=== PATIENT | male | born 1950 | race African-American/Black ===

== ENCOUNTER 2018-10-31 16:34 | Inpatient (IN) | payer MEDICARE, MEDICAID ==
[~2018-10-31] VITALS: Ht 170.2 cm; Wt 73.5 kg
[2018-10-31] MEDS ORDERED: SODIUM CHLORIDE 0.9% 1,000 ML IV ONE (23:43)
[2018-10-31] MEDS ORDERED: ONDANSETRON HCL 4MG/2ML INJ IV STA (23:43)
[2018-10-31] MEDS ORDERED: MORPHINE SULFATE 10 MG/ML CPJ IV ONE (23:45)
[2018-11-01 00:39] LABS: HEMATOCRIT. 43.6 % (42.0-52.0); HEMOGLOBIN. 14.3 g/dL (14.0-18.0); MEAN CORPUSCULAR HEMOGLOBIN 31.4 pg (28.0-32.0); MEAN CORPUSCULAR VOLUME 95.8 fL (80.0-94.0); PLATELET 172 x1000/uL (130-400); RED BLOOD CELL COUNT 4.55 mill/uL (4.7-6.1)
[2018-11-01 00:43] LABS: CHLORIDE 112 mEq/L (98-107)
[2018-11-01 00:45] LABS: INR 1.2; PROTHROMBIN TIME 11.9 sec (9.1-11.1)
[2018-11-01 03:04] LABS: CLARITY URINE TURBID (CLEAR); COLOR URINE DARK YELLOW (YELLOW); KETONES URINE NEGATIVE (NEGATIVE); LEUKOCYTE ESTERASE URINE 3+ (NEGATIVE); NITRITE URINE NEGATIVE (NEGATIVE); OCCULT BLOOD URINE 3+ (NEGATIVE); PH URINE 5.5 (4.5-8.0); PROTEIN URINE 2+ (NEGATIVE)
[2018-11-01 03:10] LABS: ATYPICAL LYMPHOCYTES 2
[2018-11-01 03:11] LABS: PLATELET ESTIMATE NORMAL
[2018-11-01 03:15] LABS: *AMPHETAMINES SCREEN URINE NEGATIVE (NEGATIVE); *BARBITURATES SCREEN URINE NEGATIVE (NEGATIVE); *BENZODIAZEPINES SCREEN URINE NEGATIVE (NEGATIVE); *COCAINE SCREEN URINE NEGATIVE (NEGATIVE); CANNABINOID URINE SCREEN NEGATIVE (NEGATIVE); METHADONE URINE SCREEN NEGATIVE (NEGATIVE); OPIATES URINE SCREEN PRESUMTIVE POSITIVE (NEGATIVE); PHENCYCLIDINE URINE SCREEN NEGATIVE (NEGATIVE)
[2018-11-01] MEDS ORDERED: IPRATROPIUM/ALBUTEROL 0.5-3(2.5)MG/3ML NEB INH PRN (06:00)
[2018-11-01] MEDS ORDERED: GUAIFENESIN 200MG/10ML SUGAR FREE UDC PO PRN (06:00)
[2018-11-01] MEDS ORDERED: MAGNESIUM/ALUMINUM HYDROXIDE/SIMETHICONE 30ML UDC PO PRN (06:00)
[2018-11-01] MEDS ORDERED: DOCUSATE SODIUM 100MG CAPSULE PO PRN (06:00)
[2018-11-01] MEDS ORDERED: DIPHENHYDRAMINE 50MG/ML VIAL IV PRN (06:00)
[2018-11-01] MEDS ORDERED: HYDRALAZINE 20MG/ML VIAL IV PRN (06:00)
[2018-11-01] MEDS ORDERED: MVI, ADULT NO.1 10 ML, FOLIC ACID 1 MG in SODIUM CHLORIDE 0.9% 1,000 ML IV SCH ×3 (06:30)
[2018-11-01 08:00] VITALS: BP 171/99
[2018-11-01] MEDS: HYDROCODONE/ACETAMINOPHEN 10/325MG TABLET PO PRN ×3 (08:07→18:26)
[2018-11-01 11:00] VITALS: BP 168/101
[2018-11-01] MEDS ORDERED: HYDRALAZINE 10 MG in SODIUM CHLORIDE 0.9% 49.5 ML IV PRN (11:15)
[2018-11-01 11:18] VITALS: BP 168/101
[2018-11-01] MEDS: ENOXAPARIN 40MG/0.4ML SYR SUBCUT SCH (11:56)
[2018-11-01] MEDS: ASPIRIN 81MG EC TABLET PO SCH (11:56)
[2018-11-01 12:00] VITALS: BP 138/81
[2018-11-01] MEDS: SODIUM CHLORIDE 0.9% INJ 3ML FLUSH IVF SCH (15:28)
[2018-11-01 16:00] VITALS: BP_SYST 132; BP_SYST 139; BP_DIAS 73; BP_DIAS 75
[2018-11-01 16:17] LABS: CREATINE KINASE MB FRACTION 2.9 ng/mL (0.5-3.6)
[2018-11-01 20:00] VITALS: BP 151/95
[2018-11-01] MEDS: ONDANSETRON HCL 4MG/2ML INJ IV PRN (20:25)
[2018-11-01] MEDS: HYDROMORPHONE HCL/PF 2MG/ML CPJ IV PRN (20:25)
[2018-11-02] VITALS (7 sets, daily range): BP systolic 135–160; BP diastolic 81–101
[2018-11-02] MEDS: CLONIDINE 0.1MG TABLET PO PRN ×2 (01:21→17:58)
[2018-11-02] MEDS: SODIUM CHLORIDE 0.9% INJ 3ML FLUSH IVF SCH ×2 (01:21→14:34)
[2018-11-02] MEDS: HYDROMORPHONE HCL/PF 2MG/ML CPJ IV PRN ×3 (06:23→17:58)
[2018-11-02] MEDS: ONDANSETRON HCL 4MG/2ML INJ IV PRN (06:23)
[2018-11-02 07:22] LABS: CHLORIDE 113 mEq/L (98-107)
[2018-11-02 07:23] LABS: BASOPHILS % 3.2 % (0.0-2.0); EOSINOPHILS % 4.8 % (0.0-5.0); HEMATOCRIT. 40.7 % (42.0-52.0); HEMOGLOBIN. 13.4 g/dL (14.0-18.0); MEAN CORPUSCULAR HEMOGLOBIN 31.8 pg (28.0-32.0); MEAN CORPUSCULAR VOLUME 96.6 fL (80.0-94.0); MEAN PLATELET VOLUME 10.7 fl (7.4-10.4); MONOCYTES % 13.6 % (2.0-8.0); NEUTROPHILS % 35.4 % (40.0-76.0); PLATELET 175 x1000/uL (130-400); RED BLOOD CELL COUNT 4.21 mill/uL (4.7-6.1); RED CELL DISTRIBUTION WIDTH 15.1 % (11.6-14.6)
[2018-11-02 07:38] LABS: LDL CHOLESTEROL 64 mg/dL (5-100)
[2018-11-02 07:41] LABS: HDL CHOLESTEROL 31 mg/dL (40-59)
[2018-11-02] MEDS: ENOXAPARIN 40MG/0.4ML SYR SUBCUT SCH (09:14)
[2018-11-02] MEDS: ASPIRIN 81MG EC TABLET PO SCH (09:14)
[2018-11-03] MEDS: HYDROMORPHONE HCL/PF 2MG/ML CPJ IV PRN ×3 (00:44→22:39)
[2018-11-03] MEDS: ONDANSETRON HCL 4MG/2ML INJ IV PRN (00:44)
[2018-11-03 04:00] VITALS: BP 151/80
[2018-11-03] MEDS: SODIUM CHLORIDE 0.9% INJ 3ML FLUSH IVF SCH ×3 (06:45→22:39)
[2018-11-03 08:00] VITALS: BP 142/92
[2018-11-03] MEDS: ENOXAPARIN 40MG/0.4ML SYR SUBCUT SCH (08:34)
[2018-11-03] MEDS: ASPIRIN 81MG EC TABLET PO SCH (08:34)
[2018-11-03] MEDS: HYDROCODONE/ACETAMINOPHEN 10/325MG TABLET PO PRN ×3 (08:34→16:30)
[2018-11-03 11:38] VITALS: BP 159/97
[2018-11-03 16:00] VITALS: BP 168/103
[2018-11-03 20:00] VITALS: BP 154/86
[2018-11-03] MEDS: AMLODIPINE 5MG TABLET PO SCH (22:47)
[2018-11-04] VITALS: BP 156/80
[2018-11-04 04:00] VITALS: BP 158/89
[2018-11-04] MEDS: SODIUM CHLORIDE 0.9% INJ 3ML FLUSH IVF SCH ×3 (06:00→22:00)
[2018-11-04] MEDS ORDERED: TRANEXAMIC ACID 1,000 MG in SODIUM CHLORIDE 0.9% 100 ML IV NR ×2 (07:15→07:30)
[2018-11-04] MEDS ORDERED: TRANEXAMIC ACID 1,000 MG/10 ML IV SCH (07:30)
[2018-11-04] MEDS ORDERED: MORPHINE SULFATE/PF 1MG/ML 10ML AMP ONE (07:30)
[2018-11-04] MEDS ORDERED: EPINEPHRINE 1:1000 1 MG/ML AMP ONE (07:31)
[2018-11-04] MEDS ORDERED: BACITRACIN 15GM TUBE TOP ONE (07:31)
[2018-11-04] MEDS ORDERED: KETOROLAC 30MG/ML VIAL ONE (07:31)
[2018-11-04] MEDS ORDERED: ROPIVACAINE HCL 10MG/ML 20 ML VIAL EPI ONE (07:32)
[2018-11-04] MEDS ORDERED: VANCOMYCIN HCL 500 MG/VIAL ONE (07:32)
[2018-11-04] MEDS ORDERED: NORMAL SALINE 0.9% 10 ML SYR ONE (07:33)
[2018-11-04] MEDS ORDERED: BACITRACIN 50,000 UNITS/VIAL ONE (07:33)
[2018-11-04] MEDS ORDERED: PROPOFOL 200MG/20ML VIAL IV ONE (08:07)
[2018-11-04] MEDS ORDERED: SUCCINYLCHOLINE CHLORIDE 200MG/10ML IV ONE (08:07)
[2018-11-04] MEDS ORDERED: METOPROLOL TARTRATE 5MG/5ML VIAL IV ONE (08:07)
[2018-11-04] MEDS ORDERED: FENTANYL CITRATE/PF 50MCG/ML 2ML VIAL ONE ×2 (08:08→08:57)
[2018-11-04] MEDS ORDERED: ROCURONIUM BROMIDE 10MG/ML VIAL 5ML IV ONE ×2 (08:09→09:06)
[2018-11-04] MEDS ORDERED: MIDAZOLAM HCL 2 MG/2 ML VIAL ONE (08:13)
[2018-11-04] MEDS ORDERED: ESMOLOL HCL 10MG/ML 10ML VIAL IV ONE (08:23)
[2018-11-04] MEDS ORDERED: CEFAZOLIN SODIUM 1000MG/VIAL ONE (08:28)
[2018-11-04] MEDS ORDERED: SODIUM CHLORIDE 0.9% 10ML VIAL ONE (08:28)
[2018-11-04] MEDS: AMLODIPINE 5MG TABLET PO SCH ×2 (09:00→20:59)
[2018-11-04] MEDS ORDERED: CEFAZOLIN 1000MG PREMIX 50 ML IV SCH ×2 (09:45→16:00)
[2018-11-04] MEDS ORDERED: ACETAMINOPHEN 325MG TABLET PO PRN (09:45)
[2018-11-04] MEDS ORDERED: KETOROLAC 30MG/ML VIAL IV PRN (09:45)
[2018-11-04] MEDS ORDERED: ONDANSETRON HCL 4MG/2ML INJ ONE (09:56)
[2018-11-04] MEDS ORDERED: METOCLOPRAMIDE HCL 10MG/2ML VIAL ONE (09:56)
[2018-11-04] MEDS ORDERED: GLYCOPYRROLATE 0.2 MG/ML 2ML VIAL ONE (09:56)
[2018-11-04] MEDS ORDERED: NEOSTIGMINE METHYLSULFATE 1MG/ML 10 ML VIAL ONE (09:56)
[2018-11-04] MEDS ORDERED: MORPHINE SULFATE 4 MG/ML CPJ (NOT FOR IM USE) IV PRN (13:45)
[2018-11-04] MEDS ORDERED: ONDANSETRON HCL 4MG/2ML INJ IV PRN (13:45)
[2018-11-04] MEDS ORDERED: SODIUM CHLORIDE 0.9% 1,000 ML IV ONE (14:00)
[2018-11-04] MEDS: HYDROMORPHONE HCL/PF 2MG/ML CPJ IV PRN ×3 (15:36→23:20)
[2018-11-04] MEDS: LORAZEPAM 2MG/ML CPJ IV PRN (16:29)
[2018-11-04] MEDS ORDERED: LORAZEPAM 2MG/ML CPJ IV PRN (17:30)
[2018-11-04] MEDS ORDERED: SODIUM CHLORIDE 0.9% 1,000 ML IV SCH (17:30)
[2018-11-04 18:30] VITALS: BP 182/122
[2018-11-04] MEDS: CLONIDINE 0.1MG TABLET PO PRN (18:53)
[2018-11-04 19:40] VITALS: BP 140/104
[2018-11-04 20:00] VITALS: BP 186/102
[2018-11-04] MEDS ORDERED: METOPROLOL TARTRATE 5MG/5ML VIAL IV NR (20:45)
[2018-11-04] MEDS: [UNRECOGNIZED DRUG - REMARK] IV SCH ×3 (20:59)
[2018-11-04] MEDS: CEFAZOLIN 1000MG PREMIX 50 ML IV SCH (23:01)
[2018-11-05] VITALS (9 sets, daily range): BP systolic 124–189; BP diastolic 54–110
[2018-11-05] MEDS: ACETAMINOPHEN 325MG TABLET PO PRN ×2 (00:17→20:18)
[2018-11-05] MEDS: HYDRALAZINE 20MG/ML VIAL IV PRN ×2 (00:32→19:39)
[2018-11-05] MEDS: HYDROCODONE/ACETAMINOPHEN 10/325MG TABLET PO PRN ×3 (01:10→16:20)
[2018-11-05] MEDS: HYDROMORPHONE HCL/PF 2MG/ML CPJ IV PRN ×4 (03:50→21:26)
[2018-11-05] MEDS: SODIUM CHLORIDE 0.9% INJ 3ML FLUSH IVF SCH ×3 (05:56→19:40)
[2018-11-05 06:20] LABS: BASOPHILS % 0.7 % (0.0-2.0); EOSINOPHILS % 0.6 % (0.0-5.0); HEMATOCRIT. 39.6 % (42.0-52.0); LYMPHOCYTES % 25.8 % (20.0-50.0); MEAN CORPUSCULAR HEMOGLOBIN 31.9 pg (28.0-32.0); MEAN CORPUSCULAR VOLUME 96.9 fL (80.0-94.0); MEAN PLATELET VOLUME 10.8 fl (7.4-10.4); MONOCYTES % 12.3 % (2.0-8.0); NEUTROPHILS % 60.6 % (40.0-76.0); PLATELET 172 x1000/uL (130-400); RED BLOOD CELL COUNT 4.09 mill/uL (4.7-6.1); RED CELL DISTRIBUTION WIDTH 14.7 % (11.6-14.6)
[2018-11-05 06:24] LABS: CHLORIDE 108 mEq/L (98-107)
[2018-11-05] MEDS: AMLODIPINE 5MG TABLET PO SCH ×2 (09:37→19:40)
[2018-11-05] MEDS: CEFAZOLIN 1000MG PREMIX 50 ML IV SCH ×2 (09:38→16:20)
[2018-11-05] MEDS: ENOXAPARIN 40MG/0.4ML SYR SUBCUT SCH (15:00)
[2018-11-05] MEDS: LORAZEPAM 2MG/ML CPJ IV PRN ×2 (17:30→19:40)
[2018-11-05] MEDS: [UNRECOGNIZED DRUG - REMARK] IV SCH ×3 (20:31)
[2018-11-05] MEDS ORDERED: DIGOXIN 500MCG/2ML AMP IV SCH (20:45)
[2018-11-05] MEDS: CLONIDINE 0.1MG TABLET PO PRN (21:08)
[2018-11-05] MEDS ORDERED: DIGOXIN 500MCG/2ML AMP IV NR (21:15)
[2018-11-06] MEDS: CEFAZOLIN 1000MG PREMIX 50 ML IV SCH ×3 (00:04→16:16)
[2018-11-06] MEDS: LORAZEPAM 2MG/ML CPJ IV PRN ×2 (01:30→16:17)
[2018-11-06] MEDS: HYDROMORPHONE HCL/PF 2MG/ML CPJ IV PRN (02:55)
[2018-11-06] MEDS: SODIUM CHLORIDE 0.9% INJ 3ML FLUSH IVF SCH ×3 (03:54→21:33)
[2018-11-06 04:00] VITALS: BP 122/95
[2018-11-06] MEDS: CLONIDINE 0.1MG TABLET PO PRN (05:13)
[2018-11-06 07:32] LABS: CHLORIDE 109 mEq/L (98-107)
[2018-11-06 07:40] LABS: BASOPHILS % 0.7 % (0.0-2.0); EOSINOPHILS % 1.1 % (0.0-5.0); HEMOGLOBIN. 11.8 g/dL (14.0-18.0); LYMPHOCYTES % 20.8 % (20.0-50.0); MEAN CORPUSCULAR HEMOGLOBIN 31.6 pg (28.0-32.0); MEAN PLATELET VOLUME 10.7 fl (7.4-10.4); MONOCYTES % 14.7 % (2.0-8.0); NEUTROPHILS % 62.7 % (40.0-76.0); PLATELET 163 x1000/uL (130-400); RED BLOOD CELL COUNT 3.75 mill/uL (4.7-6.1); RED CELL DISTRIBUTION WIDTH 14.4 % (11.6-14.6)
[2018-11-06 08:00] VITALS: BP 150/60
[2018-11-06] MEDS: METOPROLOL TARTRATE 25MG TABLET PO SCH ×2 (09:01→20:04)
[2018-11-06 12:00] VITALS: BP 141/74
[2018-11-06] MEDS: DILTIAZEM HCL 30MG TABLET PO SCH ×2 (12:05→16:16)
[2018-11-06] MEDS: ENOXAPARIN 40MG/0.4ML SYR SUBCUT SCH (14:31)
[2018-11-06 16:00] VITALS: BP 139/68
[2018-11-06] MEDS ORDERED: HYDROMORPHONE HCL/PF 2MG/ML CPJ IV PRN (18:00)
[2018-11-06] MEDS ORDERED: MAGNESIUM 1 G PREMIX 100 ML IV SCH (19:00)
[2018-11-06 20:00] VITALS: BP 143/99
[2018-11-06] MEDS: [UNRECOGNIZED DRUG - REMARK] IV SCH ×3 (20:50)
[2018-11-07 00:05] VITALS: BP 134/71
[2018-11-07] MEDS: CEFAZOLIN 1000MG PREMIX 50 ML IV SCH ×2 (00:40→08:04)
[2018-11-07] MEDS: DILTIAZEM HCL 30MG TABLET PO SCH ×3 (00:40→12:48)
[2018-11-07 04:00] VITALS: BP 183/103
[2018-11-07] MEDS: LORAZEPAM 2MG/ML CPJ IV PRN (05:17)
[2018-11-07] MEDS: SODIUM CHLORIDE 0.9% INJ 3ML FLUSH IVF SCH ×2 (05:18→14:56)
[2018-11-07] MEDS: CLONIDINE 0.1MG TABLET PO PRN (05:18)
[2018-11-07 07:47] LABS: BASOPHILS % 0.8 % (0.0-2.0); EOSINOPHILS % 3.8 % (0.0-5.0); HEMATOCRIT. 37.3 % (42.0-52.0); HEMOGLOBIN. 12.2 g/dL (14.0-18.0); LYMPHOCYTES % 13.2 % (20.0-50.0); MEAN CORPUSCULAR HEMOGLOBIN 31.8 pg (28.0-32.0); MONOCYTES % 12.4 % (2.0-8.0); NEUTROPHILS % 69.8 % (40.0-76.0); PLATELET 177 x1000/uL (130-400); RED BLOOD CELL COUNT 3.84 mill/uL (4.7-6.1); RED CELL DISTRIBUTION WIDTH 14.5 % (11.6-14.6)
[2018-11-07 08:00] VITALS: BP 168/99
[2018-11-07] MEDS: METOPROLOL TARTRATE 25MG TABLET PO SCH (08:04)
[2018-11-07 12:00] VITALS: BP 153/77
[2018-11-07 15:57] VITALS: BP 153/77
[2018-11-07 16:00] VITALS: BP 148/80
[2018-11-07] MEDS ORDERED: DILTIAZEM HCL 60MG TABLET PO SCH (18:00)
== END 2018-11-07 17:38 | DRG 470 ==
LOC: ER 16:34 → 6EST 11-01 02:42 → EDBEDREQ 11-01 02:49 → EDBEDREQSVC 11-01 02:49 → EDBEDREQTM 11-01 02:49 → ENRESERV 11-01 07:06 → 7WST 11-04 16:57
PROVIDERS: ADMIT Internal Medicine; ATTEND Internal Medicine
PROC: 0SRR0JA Replacement of Right Hip Joint, Femoral Surface with Synthetic Substitute, Uncemented, Open Approach (ICD-10-PCS; principal; 2018-11-04)
DX: S72.001A Fracture of unspecified part of neck of right femur, initial encounter for closed fracture (principal); N39.0 Urinary tract infection, site not specified; I47.1 Supraventricular tachycardia; I11.9 Hypertensive heart disease without heart failure; J44.9 Chronic obstructive pulmonary disease, unspecified; M19.90 Unspecified osteoarthritis, unspecified site; F10.20 Alcohol dependence, uncomplicated; F12.90 Cannabis use, unspecified, uncomplicated; F17.210 Nicotine dependence, cigarettes, uncomplicated; R74.0 Nonspecific elevation of levels of transaminase and lactic acid dehydrogenase [LDH]; W18.39XA Other fall on same level, initial encounter; Z82.49 Family history of ischemic heart disease and other diseases of the circulatory system; Y93.89 Activity, other specified; Y92.89 Other specified places as the place of occurrence of the external cause; Y99.8 Other external cause status
CPT/HCPCS: 36415; 71045; 72170; 72192; 73502; 73551; 80048; 80061; 80305; 82550; 82553; 83735; 84443; 84484; 86850; 86900; 87077; 87186; 88305; 88311; 93005; 93306; 96361; 96374; 96375; 97163; 97166; 97530; 99285; C1776; J0330; J0360; J0690; J1160; J1170; J1200; J1650; J1885; J2060; J2250; J2270; J2274; J2405; J2704; J2710; J2765; J2795; J3010; J3370; J3475; J3490; J7030; J7050; L1830